=== PATIENT | female | born 1960 | race Caucasian/White ===

== ENCOUNTER → 2017-06-26 | Outpatient (CLI) | payer OTHER | LOC: FIMAGING 15:56 | PROVIDERS: ATTEND Internal Medicine Hematology & Oncology | DX: R05 Cough (principal); Z85.3 Personal history of malignant neoplasm of breast ==

== ENCOUNTER → 2017-08-22 | Outpatient (CLI) | payer OTHER | LOC: FIMAGING 10:29 | PROVIDERS: ATTEND Orthopaedic Surgery | DX: Z01.818 Encounter for other preprocedural examination (principal); M17.11 Unilateral primary osteoarthritis, right knee; M25.561 Pain in right knee; M25.461 Effusion, right knee ==

== ENCOUNTER 2017-08-28 05:55 | Observation (INO) | payer OTHER ==
[2017-08-28] MEDS ORDERED: TRANEXAMIC ACID 850 MG in NS 100 ML IV ONE (06:00)
[2017-08-28] MEDS ORDERED: ROPIVACAINE 0.2% 80 MG, EPINEPHrine 0.2 MG, KETOROLAC TROMETHAMINE 30 MG, morphINE 10 M... IU ONE (06:00)
[2017-08-28] MEDS ORDERED: ceFAZolin 2 GM/SWFI 2 GM/20 ML SYR IVP ONE (06:09)
[2017-08-28] MEDS ORDERED: ACETAMINOPHEN 325 MG TAB PO ONE (06:09)
[2017-08-28] MEDS ORDERED: FAMOTIDINE 20 MG TAB PO ONE (06:09)
[2017-08-28] MEDS ORDERED: LR 1,000 ML IV ONE (06:10)
[2017-08-28] MEDS ORDERED: LIDOCAINE 1% 2 ML INJ ID PRN (06:10)
[2017-08-28] MEDS ORDERED: ceFAZolin 1 GM/5 ML SYR ONE (06:24)
--- NOTE | 2017-08-28 06:29 | PDHPUP ---
History & Physical Update H&P update statement: This history and physical update is based on an assessment of the patient which was completed after admission or registration (within 24 hours), but prior to the surgery/procedure.
[2017-08-28] MEDS ORDERED: LIDOCAINE 1% 2 ML INJ ONE (06:30)
--- NOTE | 2017-08-28 06:30 | PDIAF ---
- Diagnosis Diagnosis: right knee partial djd Code Status: Full Code - Medication Management Discharge Medications: Medications to Continue on Transfer Simvastatin [Zocor 40 mg (RX)] 40 mg PO DAILY 05/02/13 [Last Taken 08/28/17 04: 30] Herbals/Supplements -Info Only 1 ea PO DAILY 08/24/17 [Last Taken 1 Week Ago ~] Lisinopril/Hydrochlorothiazide [Zestoretic 20-12.5 mg Tablet] 1 each PO DAILY [Last Taken 1 Day Ago ~08/27/17] Multivitamins [Multivitamin (*)] 1 each PO DAILY 08/24/17 [Last Taken 1 Week Ago ~08/21/17] [place]-3 Fatty Acids [Fish Oil 1000 mg (*)] 1,000 mg PO DAILY 08/24/17 [Last Taken 1 Week Ago ~08/21/17] Discharge Medications: Refer to the Discharge Home Medication list for PRN reason. - Orders Services needed: Home Care, Physical Therapy Home Care Face to Face: I certify that this patient was under my care and that I had the required [id number] encounter meeting the encounter requirements on the discharge day. My findings support the fact that the patient is homebound as defined in Home Care Face to Face Continued: CMS Chapter 7 Medicare Benefits Manual 30.1.1 , The condition of the patient is such that there exists a normal inability to leave home and consequently, leaving home would require a considerable and taxing effort. Activity/Weight Bearing Restrictions: wbat. rom as alyssa. daily dressing changes. no soaking or immersion. f/u at two weeks. seek attn for increasing redness, swelling, drainage, discharge - Follow Up Care Current Providers and Referrals: Hollie Hartley MD [Primary Care Provider] -
[2017-08-28] MEDS ORDERED: THROMBIN (BOVINE) 5,000 UNIT VIAL TP ONE (06:57)
[2017-08-28] MEDS ORDERED: CALCIUM CHLORIDE 1 GM/10 ML INJ ONE (06:58)
[2017-08-28] MEDS ORDERED: MIDAZOLAM 2 MG/2 ML VIAL IVP ONE (07:00)
[2017-08-28] MEDS ORDERED: MIDAZOLAM 2 MG/2 ML VIAL ONE (07:04)
--- NOTE | 2017-08-28 07:06 | PDANEPAE ---
ANE History of Present Illness djd knee s/f partial knee ANE Past Medical History - Cardiovascular History Hx Hypertension: Yes Hx Arrhythmias: No Hx Chest Pain: No Hx Coronary Artery / Peripheral Vascular Disease: No Hx CHF / Valvular Disease: No Hx Palpitations: No - Pulmonary History Hx COPD: No Hx Asthma/Reactive Airway Disease: Yes Hx Recent Upper Respiratory Infection: No Hx Oxygen in Use at Home: No Hx Sleep Apnea: No Sleep Apnea Screening Result - Last Documented: Positive Pulmonary History Comment: hx of exercise induced asthma - Neurologic History Hx Cerebrovascular Accident: No Hx Seizures: No Hx Dementia: No - Endocrine History Hx Diabetes: No Endocrine History Comment: mild insulin resistance - Renal History Hx Renal Disorders: No - Liver History Hx Hepatic Disorders: No - Neurological & Psychiatric Hx Hx Neurological and Psychiatric Disorders: No - Cancer History Hx Cancer: Yes Cancer History Comment: breast cancer - Congenital Disorder History Hx Congenital Disorders: No - GI History Hx Gastrointestinal Disorders: Yes Gastrointestinal History Comment: acid reflux - Other Health History Other Health History: none - Chronic Pain History Chronic Pain: No - Surgical History Prior Surgeries: mastectomy 2012. 2 follow up procedures ANE Review of Systems Review of Systems: - Exercise capacity METS (RN): 4 METS ANE Patient History - Allergies Allergies/Adverse Reactions: adhesive tape Allergy (Mild, Verified 08/28/17 06:31) Rash - Home Medications Home medications: home medication list seen and reviewed Home Medications: Simvastatin [Zocor 40 mg (RX)] 40 mg PO DAILY 05/02/13 [Last Taken 08/28/17 04: 30] Herbals/Supplements -Info Only 1 ea PO DAILY 08/24/17 [Last Taken 1 Week Ago ~] Lisinopril/Hydrochlorothiazide [Zestoretic 20-12.5 mg Tablet] 1 each PO DAILY [Last Taken 1 Day Ago ~08/27/17] Multivitamins [Multivitamin (*)] 1 each PO DAILY 08/24/17 [Last Taken 1 Week Ago ~08/21/17] [place]-3 Fatty Acids [Fish Oil 1000 mg (*)] 1,000 mg PO DAILY 08/24/17 [Last Taken 1 Week Ago ~08/21/17] - NPO status NPO Status: no food or drink >8 hours (except meds with sips) NPO Since - Liquids (Date): 08/27/17 NPO Since - Liquids (Time): 23:55 NPO Since - Solids (Date): 08/27/17 NPO Since - Solids (Time): 20:00 - Anes Hx Anes Hx: slow to awaken from anesthesia - Smoking Hx Smoking Status: Never smoked - Alcohol Use Alcohol Use: Rarely - Family Anes Hx Family Anes Hx: none Family Hx Anesthesia Complications: none ANE Labs/Vital Signs - Labs - CBC WBC: reviewed and okay - Vital Signs Blood Pressure: 133/80 Heart Rate: 89 Respiratory Rate: 18 O2 Sat (%): 90 Height: 162.56 cm Weight: 83.915 kg ANE Physical Exam - Airway Mallampati Score: Class 1 Mouth exam: normal dental/mouth exam - Pulmonary Pulmonary: no respiratory distress - Cardiovascular Cardiovascular: regular rate and rhythym - ASA Status ASA Status: II ANE Anesthesia Plan Anesthesia Plan: spinal (R/B/A explained and patient agrees to proceed)
[2017-08-28] MEDS ORDERED: fentaNYL 100 MCG/2 ML INJ ONE (07:10)
[2017-08-28] MEDS ORDERED: PROPOFOL/EMULSION 500 MG/50 ML BOTTLE IV ONE (07:17)
[2017-08-28] MEDS ORDERED: LIDOCAINE 2% JELLY 5 ML TUBE ONE (07:20)
[2017-08-28] MEDS ORDERED: DEXAMETHASONE 4 MG/ML VIAL ONE (07:36)
[2017-08-28] MEDS ORDERED: ONDANSETRON 4 MG/2 ML VIAL ONE (07:36)
[2017-08-28] MEDS ORDERED: PHENYLEPHRINE HCL 100 MCG/ML SYR ONE (07:38)
[2017-08-28] MEDS ORDERED: PROPOFOL 200 MG/20 ML VIAL ONE (07:55)
[2017-08-28] MEDS ORDERED: METOCLOPRAMIDE 10 MG/2 ML VIAL IVP PRN ×2 (08:03→08:07)
[2017-08-28] MEDS ORDERED: LR 500 ML IV PRN (08:03)
[2017-08-28] MEDS ORDERED: LABETALOL HCL 5 MG/ML 20 ML MDV IVP PRN (08:03)
[2017-08-28] MEDS ORDERED: fentaNYL 100 MCG/2 ML INJ IVP PRN (08:03)
[2017-08-28] MEDS ORDERED: HYDROCODONE/APAP 5/325 TAB PO PRN (08:03)
[2017-08-28] MEDS ORDERED: PROMETHAZINE HCL 25 MG/ML INJ IVP PRN ×2 (08:03→08:07)
[2017-08-28] MEDS ORDERED: ACETAMINOPHEN 500 MG TAB PO PRN (08:03)
[2017-08-28] MEDS ORDERED: MEPERIDINE 25 MG/ML SYR IVP PRN (08:03)
[2017-08-28] MEDS ORDERED: NALOXONE HCL 0.4 MG/ML INJ IVP PRN (08:03)
[2017-08-28] MEDS ORDERED: ONDANSETRON 4 MG/2 ML VIAL IVP PRN ×2 (08:03→08:07)
[2017-08-28] MEDS ORDERED: OXYCODONE/APAP 5/325 TAB PO PRN (08:03)
[2017-08-28] MEDS ORDERED: DEXAMETHASONE 4 MG/ML VIAL IVP PRN (08:03)
[2017-08-28] MEDS ORDERED: PHENYLEPHRINE HCL 100 MCG/ML SYR IVP PRN (08:03)
[2017-08-28] MEDS ORDERED: ALBUTEROL 3 ML DEYVIAL IH PRN (08:03)
[2017-08-28] MEDS ORDERED: DIAZEPAM 5 MG TAB PO PRN (08:07)
[2017-08-28] MEDS ORDERED: LACTULOSE 20 GM/30 ML UDCUP PO PRN (08:07)
[2017-08-28] MEDS ORDERED: TEMAZEPAM 15 MG CAP PO PRN (08:07)
[2017-08-28] MEDS ORDERED: BISACODYL 10 MG SUPP PR PRN (08:07)
[2017-08-28] MEDS ORDERED: PROMETHAZINE HCL 25 MG SUPPR PR PRN (08:07)
[2017-08-28] MEDS ORDERED: ONDANSETRON DISINTEGRATING 4 MG TAB PO PRN (08:07)
[2017-08-28] MEDS ORDERED: diphenhydrAMINE 25 MG CAP PO PRN (08:07)
[2017-08-28] MEDS ORDERED: MAGNESIUM HYDROXIDE 30 ML UDCUP PO PRN (08:07)
[2017-08-28] MEDS ORDERED: DIPHENOXYLATE/ATROPINE LOMOTIL 1 TAB PO PRN (08:07)
[2017-08-28] MEDS ORDERED: POLYETHYLENE GLYCOL 3350 17 GM PKT PO PRN (08:07)
[2017-08-28] MEDS ORDERED: LR 1,000 ML IV SCH (08:30)
--- NOTE | 2017-08-28 08:55 | POSTANESTH ---
Post Anesthetic Evaluation Cardiovascular Status: Normal, Stable Respiratory Status: Normal, Stable Level of Consciousness/Mental Status: Can Participate in Eval Pain Control: Adequate, Prn Tx Ordered Nausea/Vomiting Control: Adequate, Prn Tx Ordered Complications Possibly Related to Anesthesia: None Noted (R adductor canal block in PACU without problem)
[2017-08-28] MEDS: ASPIRIN 81 MG CHEWABLE TAB PO SCH (11:35)
[2017-08-28] MEDS: SENNOSIDES/DOCUSATE SODIUM TAB PO SCH ×2 (11:35→20:33)
[2017-08-28] MEDS: ENOXAPARIN 80 MG/0.8 ML SYR SC SCH ×2 (11:40→20:33)
[2017-08-28] MEDS: ACETAMINOPHEN 325 MG TAB PO SCH ×3 (12:22→23:30)
[2017-08-28] MEDS: ceFAZolin 2 GM/DEXTROSE 100 ML IV SCH ×2 (13:56→23:30)
[2017-08-28] MEDS: FAMOTIDINE 20 MG TAB PO SCH (20:33)
[2017-08-29 04:39] VITALS: BP 123/75; PULSE 73; RESP 18; TEMP 97.5
[2017-08-29 05:06] LABS: HEMOGLOBIN 12.8 g/dL (12.6-16.3)
[2017-08-29] MEDS: ACETAMINOPHEN 325 MG TAB PO SCH ×2 (06:42→11:52)
--- NOTE | 2017-08-29 07:14 | PDIAF ---
- Diagnosis Diagnosis: right knee partial djd Code Status: Full Code - Medication Management Discharge Medications: Medications to Continue on Transfer Simvastatin [Zocor 40 mg] 40 mg PO DAILY 05/02/13 [Last Taken 08/28/17 04:30] Herbals/Supplements -Info Only 1 ea PO DAILY 08/24/17 [Last Taken 1 Week Ago ~] Lisinopril/Hydrochlorothiazide [Zestoretic 20-12.5 mg Tablet] 1 each PO DAILY [Last Taken 1 Day Ago ~08/27/17] Multivitamins [Multivitamin (*)] 1 each PO DAILY 08/24/17 [Last Taken 1 Week Ago ~08/21/17] [place]-3 Fatty Acids [Fish Oil 1000 mg (*)] 2,000 mg PO DAILY 08/24/17 [Last Taken 1 Week Ago ~08/21/17] Cholecalciferol (Vitamin D3) [Vitamin D3] 5,000 unit PO DAILY 08/28/17 [Last Taken Unknown] Naproxen Sodium [Aleve 220 MG (*)] 220 - 440 mg PO BID PRN 08/28/17 [Last Taken Unknown] Enoxaparin [Lovenox] 30 mg SC BID #12 syr 08/29/17 [Last Taken Unknown] oxyCODONE IR [Oxycodone Ir (*)] 5 - 10 mg PO Q3HRS PRN #80 tab 08/29/17 [Last Taken Unknown] Discharge Medications: Refer to the Discharge Home Medication list for PRN reason. - Orders Services needed: Home Care, Physical Therapy Home Care Face to Face: I certify that this patient was under my care and that I had the required [id number] encounter meeting the encounter requirements on the discharge day. My findings support the fact that the patient is homebound as defined in Home Care Face to Face Continued: CMS Chapter 7 Medicare Benefits Manual 30.1.1 , The condition of the patient is such that there exists a normal inability to leave home and consequently, leaving home would require a considerable and taxing effort. Diet Recommendation: no restrictions on diet Diet Texture: Regular Texture Diet Activity/Weight Bearing Restrictions: enoxaparin for two weeks then aspirin 325mg po daily. wbat. rom as alyssa. daily dressing changes. no soaking or immersion. f/u at two weeks. seek attn for increasing redness, swelling, drainage, discharge - Follow Up Care Current Providers and Referrals: Hollie Hartley MD [Primary Care Provider] -
[2017-08-29] MEDS: oxyCODONE IR 5 MG TAB PO PRN ×2 (08:22→09:42)
[2017-08-29 08:31] VITALS: O2SAT 94
[2017-08-29] MEDS ORDERED: ENOXAPARIN 30 MG/0.3 ML SYR SC SCH (09:00)
[2017-08-29] MEDS ORDERED: NON-FORMULARY NEW DRUG (Cholecalciferol (Vitamin D3) [Vitamin D3] 5,000 UNIT) PO SCH (09:00)
[2017-08-29] MEDS ORDERED: Herbals/Supplements -Info Only PO SCH (09:00)
[2017-08-29] MEDS ORDERED: ATORVASTATIN CALCIUM 20 MG TAB PO SCH (09:00)
[2017-08-29] MEDS ORDERED: CHOLECALCIFEROL VIT D3 2,000 UNITS TAB/CAP PO SCH (09:00)
[2017-08-29] MEDS ORDERED: NON-FORMULARY NEW DRUG (Simvastatin [Zocor 40 Mg] 40 MG) PO SCH (09:00)
[2017-08-29] MEDS ORDERED: MULTIVITAMINS 1 EACH TAB PO SCH (09:00)
[2017-08-29] MEDS ORDERED: OMEGA-3 FATTY ACIDS 1,000 MG CAP PO SCH (09:00)
[2017-08-29] MEDS ORDERED: LISINOPRIL/HCTZ 20/12.5MG 1 EA TAB PO SCH (09:00)
[2017-08-29] MEDS: ASPIRIN 81 MG CHEWABLE TAB PO SCH (09:44)
[2017-08-29] MEDS: FAMOTIDINE 20 MG TAB PO SCH (09:46)
[2017-08-29] MEDS: SENNOSIDES/DOCUSATE SODIUM TAB PO SCH (09:46)
--- NOTE | 2017-08-29 13:03 | GDS ---
[f rep st] DISCHARGE SUMMARY ADMITTING DIAGNOSIS: Right knee degenerative joint disease. DISCHARGE DIAGNOSIS: Right knee degenerative joint disease. PROCEDURE: Right partial medial meniscectomy, MAKOplasty. OPERATIVE INDICATIONS: The patient is a 57-year-old woman who has medial compartment arthritis to he r right knee. This interferes with activities of daily living. Clinical and radiographic features a re consistent with this. She has failed all attempts at conservative management. I have, therefore, recommended total knee replacement. She understood the risks, benefits, alternatives, and wished to proceed. Written consent was signed and placed in patient's chart. HOSPITAL COURSE: The patient was admitted to the hospital floor after uncomplicated partial knee rep lacement. She tolerated the procedure well. She progressed rapidly with physical therapy. At the t coleen of discharge, she is tolerating an oral diet. Pain was well controlled on oral medicines. She i s voiding without difficulty. Her dressing is clean, dry, and intact. She has no calf swelling or t enderness, bilateral lower extremities. Negative Homans. Intact plantar flexion, dorsiflexion, EHL function. She has been cleared by Physical Therapy. DISCHARGE ACTIVITY: She is weightbearing as tolerated. Range of motion as tolerated. Daily dressin g changes. No soaking or immersion. FOLLOWUP: At 2 weeks. Seek attention for increasing redness, swelling, drainage or discharge. DISCHARGE MEDICATIONS: Oxycodone 5 mg 1-2 every 6 hours p.r.n. pain. Enoxaparin 30 mg subcu twice d aily for a total of 2 weeks, and aspirin 325 mg p.o. daily. Copy requested to: Primary Care Physician /[id number]/LIBORIOL
--- NOTE | 2017-08-29 14:32 | ASMTCMCOM ---
CM Note CM Note Notes: [facility] orders sent in [employer]. Date Signed: 08/29/2017 02:32 PM Electronically Signed By:HAI Diaz
--- NOTE | 2017-08-29 14:33 | ASDISCHSUM ---
Discharge Information Plan Status:Home with Home Health Medically Cleared to Leave: Discharge Date:08/29/2017 12:14 PM CM D/C Disposition:Home Health Service ADT D/C Disposition:[id number] Projected Discharge Date:08/29/2017 11:00 AM Transportation at D/C: Discharge Delay Reason: Follow-Up Date:08/29/2017 11:00 AM Discharge Slot: Final Diagnosis: Placement Information Referral Type:*Home Health Care Services Referral ID:[id number] Provider Name:[id number] (formerly [facility]) Address 1:[address] Address 2: City:[place] Selection Factors: State:[place] Patient Contact Information Contact Name:HAWA Relationship:Sister Address:[address] [place] [address] City:[place] Alternate Phone: State/Zip Code:[place] [address] Email: Financial Information Financial Class:HMO and PPO Plans Primary Plan Desc:[employer] PPO POS HMO Primary Plan Number:[id number] Secondary Plan Desc: Secondary Plan Number: Assessment Information [facility] CM Progress Note CM Note CM Note Notes: Pt medically stable for d/c with [facility], orders sent in [facility]. Date Signed: 08/29/2017 02:32 PM Electronically Signed By:HAI Diaz Intervention Information
--- NOTE | 2017-08-30 07:58 | GOP ---
[f rep st] OPERATIVE REPORT DATE OF OPERATION: 08/28/2017 SURGEON: Bucky Cerda MD INTERNATIONAL ACCOUNTANT: Nico Fairbanks, INSURANCE INSPECTOR, [facility], who is the assistant wrestling coach who was a medical necessity for the entirety of the case. PREOPERATIVE DIAGNOSIS: Right knee medial compartment arthritis. POSTOPERATIVE DIAGNOSIS: Right knee medial compartment arthritis. PROCEDURE PERFORMED: FINDINGS: ESTIMATED BLOOD LOSS: Zero. DESCRIPTION OF PROCEDURE: The patient was identified in the preanesthesia area. The right knee was clearly demarcated as the operative site with indelible marker. She was given 2 g of Ancef intraveno usly en route to the operative suite. In the operating room, general endotracheal anesthesia was adm inistered. She was positioned in the supine position. Appropriate time-out procedure was carried ou t. The right leg was sterilely prepped and draped in the usual fashion. A tourniquet was applied to the upper thigh. The appropriate time-out procedure was carried out. The limb was exsanguinated wi th an Esmarch bandage. Tourniquet was inflated to 275 mmHg. Standard anterior midline incision was made. Thick subcutaneous flaps were elevated followed by medial parapatellar arthrotomy. The knee w as examined. There was isolated medial compartment arthritis. The decision was made to proceed with a partial knee replacement in the medial compartment. Additional percutaneous incisions were made ac ross the mid femur and mid robertson, and the tibial and femoral reference arrays were affixed. The femor al and tibial checkpoints were affixed. The bony landmarks were entered into the computer in a stand kala fashion. The knee was taken through flexion-extension with appropriate tensioning of the ligamen ts. The components were adjusted to track centrally and restore balance to the knee. Using the LUIZ plasty robot arm, I resection for the size 2 femur and size 3 tibia was carried out. The trial compo nents were then placed with an 8 mm polyethylene. This allowed full flexion and extension of the knee , stability with flexion-extension arc. The trial components were withdrawn. The surfaces were thor oughly cleansed with pulsatile lavage solution in a sequential fashion. The tibia and femoral compon ents were then cemented. The final polyethylene spacer was placed and impacted and confirmed to be f ully seated. All loose debris was evacuated free of the knee. The knee was closed using #1 Ethibond at the medial parapatellar arthrotomy. Subcutaneous tissue closed using 0 Quill and then the skin w as stapled. The margins were instilled with a joint cocktail of ropivacaine, morphine, Toradol, and epinephrine. The knee was also instilled with a platelet-rich plasma in an intra-articular position. A sterile dressing was applied. The patient was awakened and extubated taken to the recovery room in good stable condition. PROCEDURE PERFORMED: Right knee partial knee replacement, MAKOplasty. OPERATIVE INDICATIONS: Sarah Ross is a 57-year-old woman with isolated medial compartment arthrit is to her right knee. She has interference with her activities of daily living. She has failed all attempts at conservative management. I have, therefore, recommended partial knee replacement. I hav e outlined the surgical procedure, risks, benefits, and alternatives. She wished to proceed. Approp cristy consent was signed and placed in patient's chart. TOTAL TOURNIQUET TIME: 45 minutes. COMPLICATIONS: None. SPECIMENS TO PATHOLOGY: None. IMPLANTS: The MAKOplasty Restoris, size 2 femur, size 3 tibia, and 3 x 8 mm polyethylene spacer. DISPOSITION: To the recovery room and then the floor. She is weightbearing. Range of motion as alyssa erated. /[id number]/MODL
== END 2017-08-29 12:14 | disposition home health service (06) ==
LOC: INTOOBSV 05:55 → F3N 05:55
PROVIDERS: ADMIT Orthopaedic Surgery; ATTEND Orthopaedic Surgery
PROC: 0SRC0JZ Replacement of Right Knee Joint with Synthetic Substitute, Open Approach (ICD-10-PCS; principal; 2017-08-28 07:15)
DX: M17.11 Unilateral primary osteoarthritis, right knee (principal)
CPT/HCPCS: 27446; 73560; 97116; 97161; 97165; 97530; G0378; C1713; J0171; J0690; J1100; J1650; J1885; J2250; J2370; J2405; J2704; J2795; J3010

== ENCOUNTER → 2017-10-04 | Outpatient (CLI) | payer OTHER | LOC: BMCIMAGING 09:48 | PROVIDERS: ATTEND Orthopaedic Surgery | DX: M25.561 Pain in right knee (principal); Z96.651 Presence of right artificial knee joint ==

== ENCOUNTER → 2017-11-15 | Outpatient (CLI) | payer OTHER | LOC: BMCIMAGING 08:14 | PROVIDERS: ATTEND Physician Assistant | DX: Z47.1 Aftercare following joint replacement surgery (principal); Z96.651 Presence of right artificial knee joint ==

== ENCOUNTER → 2018-06-20 | Outpatient (CLI) | payer OTHER | LOC: BMCIMAGING 15:09 | PROVIDERS: ATTEND Physician Assistant | DX: Z47.1 Aftercare following joint replacement surgery (principal); Z96.651 Presence of right artificial knee joint ==